=== PATIENT | male | born 1995 | race Caucasian/White ===

== ENCOUNTER → 2020-12-21 | Outpatient (CLI) | payer BC ==
--- NOTE | 2020-12-21 10:15 | RAD ---
EXAM: 3 views right knee DATE: 12/21/2020 9:54 AM INDICATION: Reason: PAIN / Spl. Instructions: / History: . COMPARISON: No Prior FINDINGS: No evidence of acute fracture or dislocation. Joint spaces are preserved without significant degenera tive/proliferative change. Moderate right knee joint effusion. IMPRESSION: 1. No acute fracture or dislocation. 2. Moderate right knee joint effusion. Electronically signed by: Parag Madrid MD (12/21/2020 10:13 AM) [facility]
== END ==
LOC: RAD 09:48
PROVIDERS: ATTEND Family Medicine
DX: M25.461 Effusion, right knee (principal)
CPT/HCPCS: 73562